=== PATIENT | male | born 1945 | race Caucasian/White ===

== ENCOUNTER 2019-07-26 08:25 | Day surgery (SDC) | payer MEDICARE, BC ==
[~2019-07-26] VITALS: Ht 188 cm; Wt 104.0 kg
[2019-07-26] VITALS (8 sets, daily range): BP systolic 127–137; BP diastolic 77–88; PULSE 81–86; TEMP 97.7–98.1
--- NOTE | 2019-07-26 12:05 | NUR ---
PATIENT TRANSPORTED TO BAY 2 ACCOMPANIED BY PACU STAFF. MONITORS APPLIED. VSS. PATIENT ALERT AND TALKING WITH STAFF AND FAMILY MEMBER. PATIENT DENIES NAUSEA AND CHANGE IN DISCOMFORT.
--- NOTE | 2019-07-26 12:15 | NUR ---
VSS ON ROOM AIR. FAMILY MEMBER AT BEDSIDE. PATIENT GIVEN TOAST WITH JELLY AND GIVEN APPLE JUICE TO DRINK.
--- NOTE | 2019-07-26 12:35 | NUR ---
VSS. PATIENT TOLERATES TOAST AND JUICE WITHOUT PROBLEMS. PATIENT CONTINUES TO DENIE NAUSEA. PATIENT STATES JUST ALITTLE SORE AT INCISION SITES. FAMILY MEMBER AT BEDSIDE.
--- NOTE | 2019-07-26 12:50 | NUR ---
VSS ON ROOM AIR. PATIENT WATCHING TV AND VISITING WITH FAMILY.
--- NOTE | 2019-07-26 13:05 | NUR ---
VSS ON ROOM AIR. PATIENT DRINKS SECOND GLASS OF APPLE JUICE. DENIES DISCOMFORT AND NAUSEA.
--- NOTE | 2019-07-26 13:15 | NUR ---
VSS. PATIENT WATCHING TV AND TALKING WITH FAMILY MEMBER. 1320 PATIENT AMBULATED TO BATHROOM WITH STEADY GAIT WITH STAND BY ASSIST. PATIENT VOIDS WITHOUT PROBLEMS 1325 IV SITE DC'D INTACT AND PRESSURE APPLIED. 1330 DISCHARGE INSTRUCTIONS GIVEN VERBAL AND WRITTEN. DISCHARGE PACKET GIVEN WITH PRESCRIPTION. FOLLOWUP APPOINTMENT MADE AND PATIENT GIVEN INFORMATION. PATIENT CHANGES INTO PERSONAL CLOTHING. 1335 PATIENT TRANSPORTED PER W/C AND FAMILY MEMBER TRANSPORTED PER W/C TO PERSONAL SUV. 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
== END 2019-07-26 13:35 | disposition home or self-care (01) ==
LOC: SDCO 08:25
DX: K40.90 Unilateral inguinal hernia, without obstruction or gangrene, not specified as recurrent (principal)
CPT/HCPCS: C1781; J0690; J1100; J1885; J2405; J2704; J3010; J7120